=== PATIENT | female | born 1975 | race Caucasian/White ===

== ENCOUNTER 2017-01-14 11:15 | Emergency (ER) | payer OTHER ==
[2017-01-14 11:29] VITALS: BP 134/91; PULSE 77; TEMP 97.8; BMI 22.4
[2017-01-14] MEDS ORDERED: CYCLOBENZAPRINE HCL 10 MG TABLET (FP) PO ONE (11:35)
[2017-01-14] MEDS ORDERED: IBUPROFEN 600 MG TABLET (FP) PO ONE ×2 (11:35→11:38)
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
[2017-01-14] MEDS ORDERED: CYCLOBENZAPRINE HCL 10 MG TABLET (FP) ONE (11:38)
== END 2017-01-14 11:53 | disposition home or self-care (01) ==
LOC: FER 11:15
DX: M54.2 Cervicalgia (principal); M25.512 Pain in left shoulder; V43.52XA Car driver injured in collision with other type car in traffic accident, initial encounter; Y92.414 Local residential or business street as the place of occurrence of the external cause; Y93.89 Activity, other specified
CPT/HCPCS: 99283-25